=== PATIENT | female | born 1965 | race Caucasian/White ===

== ENCOUNTER 2016-11-16 15:26 | Inpatient (IN) | payer BC ==
[2016-11-16] MEDS ORDERED: SODIUM CHLORIDE 0.9% 1,000 ML IV STA (17:00)
[2016-11-16] MEDS ORDERED: FAMOTIDINE 20 MG/2 ML VIAL IV STA (17:01)
--- NOTE | 2016-11-16 17:08 | ED ---
GI Bleed HPI - General Chief complaint: GI Bleed Stated complaint: Vomiting Blood Time Seen by Provider: 11/16/16 16:49 Source: patient, RN notes reviewed Mode of arrival: ambulatory Limitations: no limitations - History of Present Illness Initial comments: This is a 51-year-old female history of a gastric bypass a number of years ago who presents with complaints of blood per rectum and vomiting blood. She states she was having some left hip pain she took one Aleve last night took another liter this morning took a third today also also took some Tylenol she started having nausea vomiting 3 today with bright red blood all 3 times she had normal bowel movement this morning but just prior to coming to the emergency departments treatment area she had a large black bowel movement. Per her she looks somewhat yellow she does admit to drinking one or 2 glasses of wine per day she denies smoking cigarettes he denies any other alcohol intake she denies any fevers chills sweats he does feel slightly weak no other complaints at this time. Of note she states she did have streaks of blood last time she use Aleve also. MD complaint: gross hematemesis, melena - Related Data Home Medications Medication Instructions Recorded Confirmed Acetaminophen Tab [Tylenol Tab] 650 mg PO Q4H 11/16/16 11/16/16 Cyanocobalamin [Vitamin B-12] 500 mcg PO DAILY 11/16/16 11/16/16 Ferrous Sulfate [Feosol] 325 mg PO DAILY 11/16/16 11/16/16 Multivitamins, Thera [Multivitamin] 1 tab PO DAILY 11/16/16 11/16/16 Naproxen Sodium [Aleve] 440 mg PO DAILY 11/16/16 11/16/16 Vitamin C/Biotin [Hair, Skin and 1 tab PO DAILY 11/16/16 11/16/16 Nails] Allergies Allergy/AdvReac Type Severity Reaction Status Date / Time Penicillins Allergy Unknown Verified 11/16/16 17:07 Review of Systems ROS Statement: Those systems with pertinent positive or pertinent negative responses have been documented in the HPI. ROS Other: All systems not noted in ROS Statement are negative. Past Medical History History of Any Multi-Drug Resistant Organisms: None Reported Past Surgical History: Bariatric Surgery Past Psychological History: No Psychological Hx Reported Smoking Status: Never smoker Past Alcohol Use History: Occasional Past Drug Use History: None Reported General Exam - General Exam Comments Initial Comments: This is a well-developed well-nourished awake alert oriented 3 female Limitations: no limitations General appearance: alert, anxious Head exam: Present: atraumatic, normocephalic, normal inspection Eye exam: Present: PERRL, EOMI, other (Pale conjunctiva) Pupils: Present: normal accommodation ENT exam: Present: normal exam, mucous membranes moist Neck exam: Present: normal inspection. Absent: tenderness, meningismus, lymphadenopathy Respiratory exam: Present: normal lung sounds bilaterally. Absent: respiratory distress, wheezes, rales, rhonchi, stridor Cardiovascular Exam: Present: normal rhythm, tachycardia GI/Abdominal exam: Present: soft, normal bowel sounds. Absent: distended, tenderness, guarding, rebound, rigid Rectal exam: Present: normal rectal tone, heme (+) stool, black stool Extremities exam: Present: normal inspection, full ROM, normal capillary refill. Absent: tenderness, pedal edema, joint swelling, calf tenderness Back exam: Present: normal inspection Neurological exam: Present: alert, oriented X3, CN II-XII intact Psychiatric exam: Present: normal affect, normal mood Skin exam: Present: warm, dry, intact, pallor Course Vital Signs 11/16/16 11/16/16 16:17 18:35 Temperature 98 F 99.0 F Pulse Rate 105 H 115 H Respiratory 20 17 Rate Blood Pressure 133/72 124/70 O2 Sat by Pulse 99 99 Oximetry - Reevaluation(s) Reevaluation #1: 11/16/16 19:13 I did reevaluate the patient symptoms at this time. Medical Decision Making - Medical Decision Making I did discuss the findings with the patient family and with the admitting physician. Patient be admitted for evaluation of GI bleed GI will be consulted at this time. - Lab Data Result diagrams: 11/16/16 17:00 11/16/16 17:00 Lab Results 11/16/16 11/16/16 11/16/16 Range/Units 17:00 17:00 17:00 WBC 12.8 H (3.8-10.6) k/uL RBC 3.57 L (3.80-5.40) m/uL Hgb 11.0 L (11.4-16.0) gm/dL Hct 34.3 (34.0-46.0) % MCV 96.1 (80.0-100.0) fL MCH 30.8 (25.0-35.0) pg MCHC 32.0 (31.0-37.0) g/dL RDW 13.3 (11.5-15.5) % Plt Count 215 (150-450) k/uL Neutrophils % 81 % Lymphocytes % 13 % Monocytes % 3 % Eosinophils % 1 % Basophils % 1 % Neutrophils # 10.4 H (1.3-7.7) k/uL Lymphocytes # 1.7 (1.0-4.8) k/uL Monocytes # 0.4 (0-1.0) k/uL Eosinophils # 0.2 (0-0.7) k/uL Basophils # 0.1 (0-0.2) k/uL PT (9.0-12.0) sec INR (<1.1) APTT (22.0-30.0) sec Sodium 140 (137-145) mmol/L Potassium 5.1 (3.5-5.1) mmol/L Chloride 104 (98-107) mmol/L Carbon Dioxide 23 (22-30) mmol/L Anion Gap 13 mmol/L BUN 49 H (7-17) mg/dL Creatinine 0.57 (0.52-1.04) mg/dL Est GFR (MDRD) Af Amer >60 (>60 ml/min/1.73 sqM) Est GFR (MDRD) Non-Af >60 (>60 ml/min/1.73 sqM) Glucose 225 H (74-99) mg/dL Calcium 8.3 L (8.4-10.2) mg/dL Magnesium 1.9 (1.6-2.3) mg/dL Total Bilirubin 0.4 (0.2-1.3) mg/dL AST 19 (14-36) U/L ALT 34 (9-52) U/L Alkaline Phosphatase 50 (38-126) U/L Total Creatine Kinase 70 (30-135) U/L CK-MB (CK-2) 0.6 (0.0-2.4) ng/mL CK-MB (CK-2) Rel Index 0.9 Troponin I <0.012 (0.000-0.034) ng/mL Total Protein 5.7 L (6.3-8.2) g/dL Albumin 3.4 L (3.5-5.0) g/dL Lipase 130 (23-300) U/L Stool Occult Blood (Negative) Blood Type Blood Type Recheck Antibody Screen Spec Expiration Date 11/16/16 11/16/16 11/16/16 Range/Units 17:00 17:00 17:00 WBC (3.8-10.6) k/uL RBC (3.80-5.40) m/uL Hgb (11.4-16.0) gm/dL Hct (34.0-46.0) % MCV (80.0-100.0) fL MCH (25.0-35.0) pg MCHC (31.0-37.0) g/dL RDW (11.5-15.5) % Plt Count (150-450) k/uL Neutrophils % % Lymphocytes % % Monocytes % % Eosinophils % % Basophils % % Neutrophils # (1.3-7.7) k/uL Lymphocytes # (1.0-4.8) k/uL Monocytes # (0-1.0) k/uL Eosinophils # (0-0.7) k/uL Basophils # (0-0.2) k/uL PT 11.3 (9.0-12.0) sec INR 1.1 (<1.1) APTT 18.6 L (22.0-30.0) sec Sodium (137-145) mmol/L Potassium (3.5-5.1) mmol/L Chloride (98-107) mmol/L Carbon Dioxide (22-30) mmol/L Anion Gap mmol/L BUN (7-17) mg/dL Creatinine (0.52-1.04) mg/dL Est GFR (MDRD) Af Amer (>60 ml/min/1.73 sqM) Est GFR (MDRD) Non-Af (>60 ml/min/1.73 sqM) Glucose (74-99) mg/dL Calcium (8.4-10.2) mg/dL Magnesium (1.6-2.3) mg/dL Total Bilirubin (0.2-1.3) mg/dL AST (14-36) U/L ALT (9-52) U/L Alkaline Phosphatase (38-126) U/L Total Creatine Kinase (30-135) U/L CK-MB (CK-2) (0.0-2.4) ng/mL CK-MB (CK-2) Rel Index Troponin I (0.000-0.034) ng/mL Total Protein (6.3-8.2) g/dL Albumin (3.5-5.0) g/dL Lipase (23-300) U/L Stool Occult Blood Positive H (Negative) Blood Type A Negative Blood Type Recheck CABO Indicated Antibody Screen NEGATIVE Spec Expiration Date 11/19/2016 - 2300 - Radiology Data Radiology results: report reviewed (X-rays are nonspecific no acute findings), image reviewed Disposition Clinical Impression: Melena, Gastrointestinal hemorrhage due to nonsteroidal antiinflammatory drug, Upper GI bleed Disposition: ADMITTED IP TO THIS [facility] Condition: Stable
[2016-11-16 17:28] LABS: Basophils # (A) 0.1 k/uL (0-0.2); Basophils % (A) 1 %; CH 32.2; CHCM 33.7; Eosinophils # (A) 0.2 k/uL (0-0.7); Eosinophils % (A) 1 %; HCT 34.3 % (34.0-46.0); HDW 2.52; Luc # (Auto) 0.11; Luc % (Auto) 1; Lymphocytes # (A) 1.7 k/uL (1.0-4.8); Lymphocytes % (A) 13 %; MCH 30.8 pg (25.0-35.0); MCV 96.1 fL (80.0-100.0); Mean Platelet Volume 8.5; Monocytes # (A) 0.4 k/uL (0-1.0); Monocytes % (A) 3 %; Neutrophils # (A) 10.4 k/uL (1.3-7.7); Neutrophils % (A) 81 %; RBC 3.57 m/uL (3.80-5.40); RDW 13.3 % (11.5-15.5); WBC 12.8 k/uL (3.8-10.6); WBC (Perox) 12.73
[2016-11-16 17:35] LABS: ALT 34 U/L (9-52); AST 19 U/L (14-36); Alkaline Phosphatase 50 U/L (38-126); Anion Gap 13 mmol/L; Blood Urea Nitrogen 49 mg/dL (7-17); Calcium 8.3 mg/dL (8.4-10.2); Carbon Dioxide 23 mmol/L (22-30); Chloride 104 mmol/L (98-107); Glucose 225 mg/dL (74-99); Magnesium 1.9 mg/dL (1.6-2.3); Non-African American GFR(MDRD) >60 (>60 ml/min/1.73 sqM); Potassium 5.1 mmol/L (3.5-5.1); Sodium 140 mmol/L (137-145); Total Bilirubin 0.4 mg/dL (0.2-1.3); Total Protein 5.7 g/dL (6.3-8.2)
[2016-11-16 17:43] LABS: INR 1.1 (<1.1); Prothrombin Time 11.3 sec (9.0-12.0)
[2016-11-16 17:53] LABS: Creatine Kinase 70 U/L (30-135)
[2016-11-16 17:56] LABS: Partial Thromboplastin Time 18.6 sec (22.0-30.0)
[2016-11-16 18:07] LABS: Creatine Kinase MB 0.6 ng/mL (0.0-2.4); Troponin I <0.012 ng/mL (0.000-0.034)
--- NOTE | 2016-11-16 18:12 | XR ---
Abdomen HISTORY: Pain, vomiting blood, rectal bleeding Frontal view of the abdomen submitted on 2 images. No comparisons Postop changes are noted, multiple surgical clips in the upper abdomen. There is no bowel obstruction or pneumoperitoneum evident. Lung bases are clear. IMPRESSION: Postoperative changes.
[2016-11-16] MEDS ORDERED: NALOXONE 0.4 MG/ML 1 ML VIAL IV PRN (19:14)
--- NOTE | 2016-11-16 19:18 | XR ---
EXAMINATION TYPE: XR chest 2V DATE OF EXAM: 11/16/2016 6:04 PM COMPARISON: None HISTORY: Pain, trauma, rectal bleeding TECHNIQUE: Frontal and lateral views of the chest are obtained. FINDINGS: There is no focal air space opacity, pleural effusion, or pneumothorax seen. The cardiac silhouette size is within normal limits. Surgical clips present in the upper abdomen. Probable calc ified granuloma left upper lobe. The osseous structures are intact. IMPRESSION: No acute cardiopulmonary process. Possible old granulomatous disease, comparison with ol d chest x-rays would be of benefit if available or alternatively consider short interval follow-up to assess for stability of left upper lobe lung nodule.
[2016-11-16 20:08] LABS: Basophils % (A) 0 %; CH 31.9; CHCM 33.9; Eosinophils # (A) 0.2 k/uL (0-0.7); Eosinophils % (A) 2 %; HCT 29.9 % (34.0-46.0); HDW 2.54; HGB 10.2 gm/dL (11.4-16.0); Luc # (Auto) 0.06; Luc % (Auto) 1; Lymphocytes # (A) 0.7 k/uL (1.0-4.8); Lymphocytes % (A) 6 %; MCH 32.2 pg (25.0-35.0); MCV 94.7 fL (80.0-100.0); Mean Platelet Volume 8.5; Monocytes # (A) 0.1 k/uL (0-1.0); Monocytes % (A) 1 %; Neutrophils # (A) 9.3 k/uL (1.3-7.7); Neutrophils % (A) 89 %; RBC 3.16 m/uL (3.80-5.40); RDW 13.2 % (11.5-15.5); WBC 10.4 k/uL (3.8-10.6); WBC (Perox) 11.57
[2016-11-16] MEDS: PANTOPRAZOLE 40 MG/10 ML VIAL IV SCH (23:07)
[2016-11-16] MEDS ORDERED: LORazepam 2 MG/ML SYRINGE IV PRN (23:41)
[2016-11-17 00:09] LABS: Glucose,Whole Blood 128 mg/dL (75-99)
[2016-11-17] MEDS: SODIUM CHLORIDE 0.9% 1,000 ML IV SCH ×4 (00:23→18:04)
[2016-11-17 00:48] LABS: CH 32.2; CHCM 34.4; HCT 28.4 % (34.0-46.0); HDW 2.57; HGB 9.4 gm/dL (11.4-16.0); MCH 31.1 pg (25.0-35.0); MCHC 33.1 g/dL (31.0-37.0); MCV 94.1 fL (80.0-100.0); Mean Platelet Volume 9.8; RBC 3.02 m/uL (3.80-5.40); RDW 13.4 % (11.5-15.5); WBC 7.1 k/uL (3.8-10.6)
[2016-11-17 03:25] LABS: Anion Gap 7 mmol/L; Blood Urea Nitrogen 40 mg/dL (7-17); Calcium 8.2 mg/dL (8.4-10.2); Carbon Dioxide 23 mmol/L (22-30); Chloride 109 mmol/L (98-107); Glucose 108 mg/dL (74-99); Non-African American GFR(MDRD) >60 (>60 ml/min/1.73 sqM); Sodium 139 mmol/L (137-145)
[2016-11-17 03:30] LABS: Appearance,Urine Clear (Clear); Bilirubin,Urine Negative (Negative); Glucose,Urine (UA) Negative (Negative); Ketones,Urine 1+ (Negative); Leukocyte Esterase,Urine Negative (Negative); Nitrite,Urine Negative (Negative); PH, Urine 5.5 (5.0-8.0); Protein,Urine Negative (Negative); Specific Gravity,Urine 1.023 (1.001-1.035); UA Billing (MACRO vs. MICRO) CHEM; Urobilinogen,Urine <2.0 mg/dL (<2.0)
[2016-11-17 05:58] LABS: Glucose,Whole Blood 105 mg/dL (75-99)
[2016-11-17 06:09] LABS: Basophils % (A) 0 %; CH 31.9; CHCM 33.8; Eosinophils # (A) 0.1 k/uL (0-0.7); Eosinophils % (A) 1 %; HCT 25.1 % (34.0-46.0); HDW 2.51; HGB 8.4 gm/dL (11.4-16.0); Luc # (Auto) 0.12; Luc % (Auto) 2; Lymphocytes # (A) 1.7 k/uL (1.0-4.8); Lymphocytes % (A) 24 %; MCH 31.6 pg (25.0-35.0); MCHC 33.3 g/dL (31.0-37.0); MCV 94.9 fL (80.0-100.0); Mean Platelet Volume 9.2; Monocytes # (A) 0.4 k/uL (0-1.0); Monocytes % (A) 6 %; Neutrophils # (A) 4.9 k/uL (1.3-7.7); Neutrophils % (A) 68 %; RBC 2.65 m/uL (3.80-5.40); RDW 13.5 % (11.5-15.5); WBC 7.2 k/uL (3.8-10.6); WBC (Perox) 7.17
[2016-11-17 06:22] LABS: Anion Gap 10 mmol/L; Blood Urea Nitrogen 37 mg/dL (7-17); Calcium 8.3 mg/dL (8.4-10.2); Carbon Dioxide 22 mmol/L (22-30); Chloride 111 mmol/L (98-107); Glucose 104 mg/dL (74-99); Magnesium 2.1 mg/dL (1.6-2.3); Non-African American GFR(MDRD) >60 (>60 ml/min/1.73 sqM); Phosphorous 3.3 mg/dL (2.5-4.5); Potassium 3.8 mmol/L (3.5-5.1); Sodium 143 mmol/L (137-145)
[2016-11-17] MEDS: INSULIN LISPRO (humaLOG) 300 UNIT/3 ML VIAL SQ SCH ×3 (06:37→18:08)
[2016-11-17] MEDS ORDERED: Potassium Replacement Protocol 1 EACH MISC MISCELLANE PRN (06:38)
[2016-11-17] MEDS: POTASSIUM CHLORIDE 10 MEQ, LIDOCAINE 2% INJ 10 MG in SODIUM CHLORIDE 0.9% 100 ML IV SCH ×2 (07:08→08:54)
[2016-11-17] MEDS ORDERED: INSULIN LISPRO (humaLOG) 300 UNIT/3 ML VIAL SQ SCH (07:30)
[2016-11-17 07:51] LABS: Glucose,Whole Blood 91 mg/dL (75-99)
--- NOTE | 2016-11-17 08:36 | HP ---
DATE OF ADMISSION: The chief complaint is GI bleed. HISTORY OF PRESENT ILLNESS: This is a 51-year-old woman with a past medical history of multiple medical problem with history of anemia. She had bariatric surgery, being followed by Dr. Mercer in the outpatient setting. Patient had multiple episodes of vomiting with blood and subsequently patient had bleeding per rectum. Initially it was black in color. Subsequently, it was burgundy in color. Patient came to [facility], admitted for further evaluation and hemoglobin is found to be 11 and 10.2. The patient and the patient is being transferred is being transferred to ICU at this time. There no history of any fever, rigors or chills. No history of headaches, loss of consciousness. PAST MEDICAL HISTORY: History of anemia, history of bariatric surgery with resection. Medications prior to admission: 1. Vitamin C 1 tablet p.o. daily. 2. Aleve 440 mg p.o. daily. 3. Iron sulfate 325 mg daily. 4. Tylenol 650 p.o. q.4 p.r.n. 5. Vitamin B12 five hundred mcg p.o. daily. 6. Multivitamin 1 p.o. daily Allergies are PENICILLIN. FAMILY HISTORY: History of Crohn's disease in the family. SOCIAL HISTORY: No history of heart disease or alcohol intake. REVIEW OF SYSTEMS: HEENT: No diminished vision or hearing. CARDIOVASCULAR: No angina, palpitations. RESPIRATORY: No cough, hemoptysis. GI: No nausea. : No dysuria. NERVOUS SYSTEM: No numbness or weakness. ALLERGY/IMMUNOLOGY: No asthma or hay fever. MUSCULOSKELETAL: As mentioned earlier. HEMATOLOGY/ONCOLOGY: As mentioned earlier. ENDOCRINE: No history of diabetes or hypothyroidism. CONSTITUTIONAL: As mentioned earlier. DERMATOLOGY: Negative. PSYCHIATRY: As mentioned earlier. PHYSICAL EXAM: Patient is alert and oriented x3. Pulse 103, blood pressure 125/82 and 133/84, respiration 17, temperature is 98.4, pulse ox 90% on room air. HEENT: Conjunctivae normal. Oral mucosa moist. NECK: No jugular venous distention. No carotid bruit. No lymph node enlargement. CARDIOVASCULAR SYSTEM: S1, S2, no S3, no S4. RESPIRATORY: Breath sounds diminished at the bases. A few scattered rhonchi, no crackles. ABDOMEN: Soft. Mild diffuse discomfort to palpation. No guarding. No mass palpable. EXTREMITIES: Legs no edema, no swelling. NERVOUS SYSTEM: Higher functions as mentioned, moves all 4 limbs, no focal deficits. LYMPHATICS: No lymph node enlargement to the neck or axillae. SKIN: No ulcer, rash or bleeding. Labs are WBC 4, hemoglobin 10.2. Other labs are noted. Glucose 225. ASSESSMENT: 1. Upper gastrointestinal bleeding with acute blood loss anemia. 2. Orthostatic tachycardia. 3. Increased WBC, possibly reactive. 4. Increased BUN. 5. Increased random blood sugar, possibly diabetes mellitus type 2. 6. Hypoalbuminemia, mild. 7. History of anemia. 8. History of adenoidectomy. 9. History of bariatric surgery. 10. History of section. 11. History of Calista-en-Y. 12. FULL CODE. RECOMMENDATION: In this is a 51-year-old woman who presented with multiple complex medical issues, will monitor the patient closely. I would recommend transfer the patient to ICU, 2 units of blood transfusion, monitor closely q.6 and proton inhibitors, n.p.o. until seen by Gastroenterology, upper endoscopy. Dr. Ramirez for ICU management monitor. DVT prophylaxis. Overall prognosis is guarded because of multiple complex medical issues. Further recommendations to follow. A copy is forwarded to Dr. Mercer who is the primary physician. Accu-Cheks a.c. and at bedtime also. Continue to monitor. MTDD
[2016-11-17] MEDS: PANTOPRAZOLE 40 MG/10 ML VIAL IV SCH ×2 (08:54→21:23)
--- NOTE | 2016-11-17 09:11 | P.CONS ---
History of Present Illness - Reason for Consult Consult date: 11/17/16 GI bleed Requesting physician: Erickson Crook - History of Present Illness 51-year-old female patient Dr. Mercer with a past medical history of Calista-en-Y gastric bypass 2010 in [place] with 100+ pound weight loss, chronic arthritic pain, and anemia. Patient has a history of chronic NSAID Tylenol usage for her arthritis preceding her Calista-en-Y gastric bypass. Yesterday she was experiencing difficulty sleeping around 3 AM and took Aleve secondary to joint pain. Joint pain did not improve and I am she took another Aleve. She took 2 tablets of Tylenol followed by another tablets of Aleve at 2 PM. Around 3 PM should increased nausea with 2 Brenna emesis followed by 2 large mixed red/black bloody bowel movement in the emergency room. Last night she had one additional bowel movement that was more red in nature. Mild discomfort in the midepigastric region but denies "pain". No history of GI bleed. Denies fever, chills. No usage of aspirin or other antiplatelet medications. Colonoscopy 2 years ago and her memory was within normal limits. Last EGD was prior to gastric bypass. Admission hemoglobin 9.4 MCV 94. Hemoglobin currently 8.4. Platelet 149. BUN 40. Creatinine 0.5. White count 7.2. INR 1.1. Abdominal x-ray no bowel obstruction postoperative changes. Chest x-ray no acute cardiopulmonary process. Review of Systems All systems: negative (See HPI) Past Medical History Additional Past Medical History / Comment(s): anemia History of Any Multi-Drug Resistant Organisms: None Reported Past Surgical History: Adenoidectomy, Bariatric Surgery, Section Additional Past Surgical History / Comment(s): 2010 calista -en-y; c sec x 2; ear tubesx2 at age 1 Past Anesthesia/Blood Transfusion Reactions: No Reported Reaction Past Psychological History: No Psychological Hx Reported Smoking Status: Never smoker Past Alcohol Use History: Occasional Past Drug Use History: None Reported - Past Family History Daughter(s) Family Medical History: No Reported History Mother Family Medical History: Hypertension Additional Family Medical History / Comment(s): crohns disease Medications and Allergies Home Medications Medication Instructions Recorded Confirmed Type Acetaminophen Tab [Tylenol Tab] 650 mg PO Q4H 11/16/16 11/16/16 History Cyanocobalamin [Vitamin B-12] 500 mcg PO DAILY 11/16/16 11/16/16 History Ferrous Sulfate [Feosol] 325 mg PO DAILY 11/16/16 11/16/16 History Multivitamins, Thera [Multivitamin] 1 tab PO DAILY 11/16/16 11/16/16 History Naproxen Sodium [Aleve] 440 mg PO DAILY 11/16/16 11/16/16 History Vitamin C/Biotin [Hair, Skin and 1 tab PO DAILY 11/16/16 11/16/16 History Nails] Allergies Allergy/AdvReac Type Severity Reaction Status Date / Time Penicillins Allergy Unknown Verified 11/16/16 17:07 Physical Exam Vitals: Vital Signs Temp Pulse Pulse Resp BP BP BP 11/17/16 07:00 73 13 138/74 11/17/16 06:30 79 17 119/63 11/17/16 06:00 96 16 119/63 11/17/16 05:30 81 16 128/68 11/17/16 05:00 97 16 128/68 11/17/16 04:30 88 14 132/73 11/17/16 04:00 98.0 F 85 16 132/73 11/17/16 03:30 90 16 118/69 11/17/16 03:00 93 13 118/69 11/17/16 02:30 88 16 126/86 11/17/16 02:00 100 15 126/86 11/17/16 01:30 85 17 126/81 11/17/16 01:00 90 15 126/81 11/17/16 00:30 98.2 F 93 13 140/92 11/17/16 00:08 90 11/16/16 22:25 98.3 F 103 H 17 125/82 119/79 11/16/16 21:10 98.0 F 11/16/16 20:49 104 H 17 141/80 11/16/16 19:48 103 H 17 124/70 BP Pulse Ox 11/17/16 07:00 97 11/17/16 06:30 97 11/17/16 06:00 98 11/17/16 05:30 96 11/17/16 05:00 95 11/17/16 04:30 97 11/17/16 04:00 97 11/17/16 03:30 96 11/17/16 03:00 97 11/17/16 02:30 98 11/17/16 02:00 94 L 11/17/16 01:30 98 11/17/16 01:00 97 11/17/16 00:30 98 11/17/16 00:08 11/16/16 22:25 136/84 98 11/16/16 21:10 11/16/16 20:49 97 11/16/16 19:48 97 Intake and Output 11/16/16 11/17/16 11/17/16 22:59 06:59 14:59 Intake Total 125 750 125 Output Total 400 0 Balance 125 350 125 Intake: IV 125 750 125 Sodium Chloride 0.9% 1, 125 750 125 000 ml @ 125 mls/hr IV . Q8H [facility] Rx#:[id number] Output: Urine 400 0 Stool 0 Other: Voiding Method Toilet Toilet # Voids 1 # Bowel Movements 1 0 Weight 69 kg 70.4 kg Patient Weight 11/18/16 06:59 Weight 70.4 kg General appearance: The patient is alert, oriented, in no acute distress. HET: Head is normocephalic and atraumatic. Pupils are equal and reactive. Oropharynx is clear without lesions. Neck: Supple without lymphadenopathy. Trachea midline. Heart: S1 S2. Regular rate and rhythm. Lungs: No crackles or wheezes are heard. Abdomen: Soft, midepigastric discomfort, nondistended with bowel sounds. No peritoneal signs. No palpable organomegaly or masses. Extremities: Normal skin color and turgor. No cyanosis, rash, ulceration, clubbing, or edema. Radial and pedal pulses are 2/4 bilaterally. Neurological: No focal deficits. Strength and sensation are grossly intact. Results CBC & Chem 7: 11/17/16 05:54 11/17/16 05:54 Labs: Abnormal Lab Results - Last 24 Hours (Table) 11/16/16 11/17/16 11/17/16 Range/Units 19:54 00:07 00:38 RBC 3.16 L 3.02 L (3.80-5.40) m/uL Hgb 10.2 L 9.4 L (11.4-16.0) gm/dL Hct 29.9 L 28.4 L (34.0-46.0) % Plt Count (150-450) k/uL Neutrophils # 9.3 H (1.3-7.7) k/uL Lymphocytes # 0.7 L (1.0-4.8) k/uL Chloride (98-107) mmol/L BUN (7-17) mg/dL Creatinine (0.52-1.04) mg/dL Glucose (74-99) mg/dL POC Glucose (mg/dL) 128 H (75-99) mg/dL Calcium (8.4-10.2) mg/dL Urine Ketones (Negative) 11/17/16 11/17/16 11/17/16 Range/Units 02:52 03:15 05:54 RBC 2.65 L (3.80-5.40) m/uL Hgb 8.4 L (11.4-16.0) gm/dL Hct 25.1 L (34.0-46.0) % Plt Count 149 L (150-450) k/uL Neutrophils # (1.3-7.7) k/uL Lymphocytes # (1.0-4.8) k/uL Chloride 109 H (98-107) mmol/L BUN 40 H (7-17) mg/dL Creatinine 0.50 L (0.52-1.04) mg/dL Glucose 108 H (74-99) mg/dL POC Glucose (mg/dL) (75-99) mg/dL Calcium 8.2 L (8.4-10.2) mg/dL Urine Ketones 1+ H (Negative) 11/17/16 11/17/16 Range/Units 05:54 05:56 RBC (3.80-5.40) m/uL Hgb (11.4-16.0) gm/dL Hct (34.0-46.0) % Plt Count (150-450) k/uL Neutrophils # (1.3-7.7) k/uL Lymphocytes # (1.0-4.8) k/uL Chloride 111 H (98-107) mmol/L BUN 37 H (7-17) mg/dL Creatinine (0.52-1.04) mg/dL Glucose 104 H (74-99) mg/dL POC Glucose (mg/dL) 105 H (75-99) mg/dL Calcium 8.3 L (8.4-10.2) mg/dL Urine Ketones (Negative) Assessment and Plan (1) Upper GI bleed Status: Acute (2) NSAID long-term use Status: Acute (3) History of Calista-en-Y gastric bypass Status: Acute (4) Acute blood loss anemia Status: Acute (5) Chronic anemia Status: Acute Plan: 1. IV Protonix 40 mg twice a day. No aspirin or NSAID products. 2. Nothing by mouth except medications. 3. Serial CBC. 4. EGD evaluation today. 5. Discontinuance of NSAIDs was discussed with patient. The sales representative [employer] supplies has discussed the risks, benefits and alternative therapies for the above-mentioned procedure and for both sedation/analgesia as well as necessary blood product administration, if indicated, as they pertain to this patient. The patient has indicated understanding and acceptance of the risks and procedures discussed. Thank you for this kind referral and the opportunity to participate in the care of your patient. This consultation was discussed with Dr. Dorsey. The impression and plan of care have been directed as dictated.
--- NOTE | 2016-11-17 10:53 | P.CNPUL ---
History of Present Illness Consult date: 11/17/16 Reason for consult: other Chief complaint: GI bleed History of present illness: Date 11/17/2016 This is a a 51-year-old female who was initially admitted to the emergency room on November 16. She was admitted to the fifth floor with a diagnosis of GI bleed. Apparently an 18 was called because of ongoing GI bleeding of the patient was transferred to the ICU. The patient is currently on room air. She has an IV appointment 9 at 125 an hour. The patient apparently is going to have an EGD today. She apparently signed the consent. Review of Systems A 12 point review of system is performed. Is positive for upper GI bleed. The rest of the 12 point review of system is unremarkable. Axid right now she's doing very well. Feeling well. No major complaint. No pain. No further vomiting or GI bleeding. Past Medical History Additional Past Medical History / Comment(s): anemia History of Any Multi-Drug Resistant Organisms: None Reported Past Surgical History: Adenoidectomy, Bariatric Surgery, Section Additional Past Surgical History / Comment(s): 2010 calista -en-y; c sec x 2; ear tubesx2 at age 1 Past Anesthesia/Blood Transfusion Reactions: No Reported Reaction Past Psychological History: No Psychological Hx Reported Smoking Status: Never smoker Past Alcohol Use History: Occasional Past Drug Use History: None Reported - Past Family History Daughter(s) Family Medical History: No Reported History Mother Family Medical History: Hypertension Additional Family Medical History / Comment(s): crohns disease Medications and Allergies Home Medications Medication Instructions Recorded Confirmed Type Acetaminophen Tab [Tylenol Tab] 650 mg PO Q4H 11/16/16 11/16/16 History Cyanocobalamin [Vitamin B-12] 500 mcg PO DAILY 11/16/16 11/16/16 History Ferrous Sulfate [Feosol] 325 mg PO DAILY 11/16/16 11/16/16 History Multivitamins, Thera [Multivitamin] 1 tab PO DAILY 11/16/16 11/16/16 History Naproxen Sodium [Aleve] 440 mg PO DAILY 11/16/16 11/16/16 History Vitamin C/Biotin [Hair, Skin and 1 tab PO DAILY 11/16/16 11/16/16 History Nails] Allergies Allergy/AdvReac Type Severity Reaction Status Date / Time Penicillins Allergy Unknown Verified 11/16/16 17:07 Physical Exam Osteopathic Statement: *. No significant issues noted on an osteopathic structural exam other than those noted in the History and Physical/Consult. Vitals: Vital Signs Temp Pulse Pulse Pulse Resp BP BP 11/17/16 09:30 96 29 H 141/70 11/17/16 09:00 84 23 165/83 11/17/16 08:30 71 15 141/78 11/17/16 08:00 98.1 F 83 96 17 141/78 11/17/16 07:30 84 19 138/74 11/17/16 07:00 73 13 138/74 11/17/16 06:30 79 17 119/63 11/17/16 06:00 96 16 119/63 11/17/16 05:30 81 16 128/68 11/17/16 05:00 97 16 128/68 11/17/16 04:30 88 14 132/73 11/17/16 04:00 98.0 F 85 16 132/73 11/17/16 03:30 90 16 118/69 11/17/16 03:00 93 13 118/69 11/17/16 02:30 88 16 126/86 11/17/16 02:00 100 15 126/86 11/17/16 01:30 85 17 126/81 11/17/16 01:00 90 15 126/81 11/17/16 00:30 98.2 F 93 13 140/92 11/17/16 00:08 90 11/16/16 22:25 98.3 F 103 H 17 125/82 11/16/16 21:10 98.0 F 11/16/16 20:49 104 H 17 141/80 11/16/16 19:48 103 H 17 124/70 BP BP Pulse Ox 11/17/16 09:30 96 11/17/16 09:00 11/17/16 08:30 96 11/17/16 08:00 96 11/17/16 07:30 95 11/17/16 07:00 97 11/17/16 06:30 97 11/17/16 06:00 98 11/17/16 05:30 96 11/17/16 05:00 95 11/17/16 04:30 97 11/17/16 04:00 97 11/17/16 03:30 96 11/17/16 03:00 97 11/17/16 02:30 98 11/17/16 02:00 94 L 11/17/16 01:30 98 11/17/16 01:00 97 11/17/16 00:30 98 11/17/16 00:08 11/16/16 22:25 119/79 136/84 98 11/16/16 21:10 11/16/16 20:49 97 11/16/16 19:48 97 Intake and Output 11/16/16 11/17/16 11/17/16 22:59 06:59 14:59 Intake Total 125 750 475 Output Total 400 400 Balance 125 350 75 Intake: IV 125 750 375 Sodium Chloride 0.9% 1, 125 750 375 000 ml @ 125 mls/hr IV . Q8H JOHNNIE Rx#:[id number] Intake, IV Titration 100 Amount Potassium Chloride 10 meq 100 Lidocaine 2% Inj 10 mg In Sodium Chloride 0.9% 100 ml @ 100 mls/hr IV Q1HR JOHNNIE Rx#:[id number] Output: Urine 400 400 Stool 0 Emesis 0 Other: Voiding Method Toilet Toilet # Voids 1 0 # Bowel Movements 1 0 1 # Emeses 0 Weight 69 kg 70.4 kg Patient Weight 11/18/16 06:59 Weight 70.4 kg No acute distress, oriented 3. HEENT examination is grossly unremarkable. Mixed membranes are moist. No oral lesions. Supple. Full range of motion. No adenopathy. Cardiovascular examination reveals regular rhythm rate. S1-S2 normal. No S3- S4 murmur. Lungs clear breath sounds equal. Abdomen soft bowel sounds are heard. Extremities are intact. Results - Laboratory Findings CBC and BMP: 11/17/16 05:54 11/17/16 05:54 PT/INR, D-dimer PT 11.3 sec (9.0-12.0) 11/16/16 17:00 INR 1.1 (<1.1) 11/16/16 17:00 Abnormal lab findings: Abnormal Labs 11/16/16 11/17/16 11/17/16 19:54 00:07 00:38 RBC 3.16 L 3.02 L Hgb 10.2 L 9.4 L Hct 29.9 L 28.4 L Plt Count Neutrophils # 9.3 H Lymphocytes # 0.7 L Chloride BUN Creatinine Glucose POC Glucose (mg/dL) 128 H Calcium Urine Ketones 11/17/16 11/17/16 11/17/16 02:52 03:15 05:54 RBC 2.65 L Hgb 8.4 L Hct 25.1 L Plt Count 149 L Neutrophils # Lymphocytes # Chloride 109 H BUN 40 H Creatinine 0.50 L Glucose 108 H POC Glucose (mg/dL) Calcium 8.2 L Urine Ketones 1+ H 11/17/16 11/17/16 05:54 05:56 RBC Hgb Hct Plt Count Neutrophils # Lymphocytes # Chloride 111 H BUN 37 H Creatinine Glucose 104 H POC Glucose (mg/dL) 105 H Calcium 8.3 L Urine Ketones Assessment and Plan (1) Acute blood loss anemia Status: Acute (2) Gastrointestinal hemorrhage due to nonsteroidal antiinflammatory drug Status: Acute (3) History of Calista-en-Y gastric bypass Status: Acute (4) Upper GI bleed Status: Acute Plan: Plan dated 11/17/2016 The patient apparently the patient seemed very stable. The patient might be able be transferred out of the unit later today. No discharge recommendations are made. We'll wait and see what the results of the EGD is. Currently she is not getting supplemental oxygen. Currently on room air. Her IVs appointment 9 IV at 1 25 mL an hour. Time with Patient: Greater than 30
[2016-11-17] MEDS ORDERED: MIDAZOLAM 2 MG/2 ML VIAL ONE (11:13)
[2016-11-17] MEDS ORDERED: LIDOCAINE 1% INJ 10MG/ML (20 ML MDV) ONE (11:13)
[2016-11-17] MEDS ORDERED: IV FLUID CONTINUATION 1,000 ML IV ONE (11:13)
[2016-11-17] MEDS ORDERED: PROPOFOL 10 MG/ML 20 ML VIAL IV ONE (11:13)
--- NOTE | 2016-11-17 11:46 | P.PCN ---
Date of Procedure: 11/17/16 Procedure(s) Performed: BRIEF HISTORY: Patient is a 51-year-old, pleasant, white female, admitted to the hospital with 3 episodes of hematemesis and multiple episodes of maroon- colored stools since yesterday afternoon. She has prior history of gastric bypass surgery with Calista-en-Y anastomosis in 2010 in [place]. Recently has been taking some Aleve but not on a regular basis. She is scheduled for an upper endoscopy to evaluate for upper GI source of bleeding. PROCEDURE PERFORMED: Esophagogastroduodenoscopy with cautery and resolution clip placement. PREOPERATIVE DIAGNOSIS: Acute GI bleed. IV sedation per anesthesia. PROCEDURE: After informed consent was obtained, the patient was brought into the endoscopy unit. IV conscious sedation was administered by Anesthesia under continuous monitoring. Initially the Olympus GIF-140 video endoscope was inserted into the mouth. Esophagus intubated without any difficulty. It was gradually advanced into the gastric pouch. The Calista-en-Y anastomosis was identified. There were 2 ulcerations noted on the anastomosis one was superficial measuring 1 cm and the second ulcer was large measuring about 3 cm and slightly deep and at the edge of the ulcer there was a clot that was adherent. In the middle of the ulcer there were 2 small brownish protuberance is seen. There was a list mild oozing noted at the site of the clot. I tried to dislodge the clot clot and thorough irrigation but was not possible. At this time I proceeded with a placement at the site of the clot with a visible vessel was identified with good hemostasis. Following this using the cautery the base of the ulcer with there were 2 small brownish protuberance is noted with cauterized. No further bleeding was identified. The gastric pouch appeared normal. The scope was advanced into both the afferent and the efferent loops which appeared normal. The scope was then withdrawn into the esophagus. The GE junction was located at 39 cm from the incisors. The esophagus appeared normal. There were no erosions or ulcerations seen and the patient tolerated the procedure well. IMPRESSION: 1. 2 ulcerations at the Calista-en-Y anastomosis measuring 1 cm and 3 cm in size. The larger ulcer had a visible vessel with a clot status post cautery and resolution clip placement as described above. 2. Normal Gastric pouch. RECOMMENDATIONS: The findings of this examination were discussed with the patient . She will be on a clear liquid diet today and she'll be continued on Protonix 40 mg every 12 hours..
[2016-11-17 12:14] LABS: Glucose,Whole Blood 98 mg/dL (75-99)
[2016-11-17 12:50] LABS: CH 31.7; CHCM 33.1; HCT 22.8 % (34.0-46.0); HDW 2.51; HGB 7.6 gm/dL (11.4-16.0); MCH 31.9 pg (25.0-35.0); MCHC 33.1 g/dL (31.0-37.0); MCV 96.2 fL (80.0-100.0); Mean Platelet Volume 7.9; RBC 2.37 m/uL (3.80-5.40); RDW 13.5 % (11.5-15.5); WBC 7.5 k/uL (3.8-10.6)
[2016-11-17 13:06] LABS: INR 1.1 (<1.1); Prothrombin Time 11.5 sec (9.0-12.0)
[2016-11-17 17:55] LABS: Glucose,Whole Blood 83 mg/dL (75-99)
[2016-11-17] MEDS: SUCRALFATE 1 GM TAB PO SCH ×2 (18:03→21:23)
[2016-11-17 20:45] LABS: Glucose,Whole Blood 91 mg/dL (75-99)
[2016-11-17 21:20] LABS: CH 31.6; CHCM 33.5; HCT 29.8 % (34.0-46.0); HDW 2.69; MCH 31.6 pg (25.0-35.0); MCHC 33.2 g/dL (31.0-37.0); MCV 95.1 fL (80.0-100.0); Mean Platelet Volume 7.9; RBC 3.13 m/uL (3.80-5.40); RDW 13.9 % (11.5-15.5); WBC 10.3 k/uL (3.8-10.6)
[2016-11-17] MEDS: ALPRAZolam 0.25 MG TAB PO PRN (21:25)
[2016-11-17 21:36] LABS: HGB 9.9 gm/dL (11.4-16.0)
[2016-11-17 22:33] LABS: Hemoglobin A1C 4.6 % (4.2-6.1)
--- NOTE | 2016-11-17 23:17 | PN ---
DATE OF SERVICE: 11/17/2016 This 51-year-old woman was admitted with upper GI bleed and acute blood loss anemia hemoglobin dropping to 7.4. Dr. Dorsey performed EGD which showed 2 ulcerated lesions at the Calista-en-Y anastomosis measuring 1 cm and 3 cm. The larger ulcer had a visible vessel with a clot, status post patient underwent cautery as well as clip placement. Normal gastric pouch was noted and the patient admitted for further evaluation. There is no history of any fever, chills. PAST MEDICAL HISTORY: Reviewed. REVIEW OF SYSTEMS: CARDIOVASCULAR: No angina, palpitations. RESPIRATORY: As mentioned earlier. GI: As mentioned earlier. : No dysuria. Current medications are reviewed, include: 1. Xanax 0.25 daily. 2. Humalog. 3. Narcan. 4. Protonix. 5. Carafate. PHYSICAL EXAM: Patient is alert and oriented x3. Pulse 73, blood pressure 130/70, respirations 16, temperature 98.4, pulse ox normal. HEENT: Conjunctivae normal. Oral mucosa moist. Neck is no jugular venous distension. No carotid bruits. No lymph node enlargement. CARDIOVASCULAR: S1 and S2 muffled. No S3. No S4. RESPIRATORY: Breath sounds diminished at the bases. A few scattered rhonchi. No crackles. Abdomen is soft, mild discomfort. There is no guarding. There is no mass palpable. LEGS: No edema. NERVOUS SYSTEM: Nonfocal. LABS: Hemoglobin 7.6. Otherwise, BMP noted, glucose 104. UA noted, 1+ ketones. ASSESSMENT: 1. Upper gastrointestinal bleeding with acute blood loss anemia secondary to 2 ulcerations at the Calista-en-Y anastomotic site measuring 1 cm and 3 cm. 2. Orthostatic tachycardia. 3. Increased WBC, possibly reactive. 4. Increased BUN. 5. Increased random blood sugar, possibly diabetes mellitus type 2. 6. Hypoalbuminemia, mild. 7. History of anemia. 8. History of adenoidectomy. 9. History of bariatric surgery. 10. History of section. 11. History of Calista-en-Y. 12. FULL CODE. RECOMMENDATIONS AND DISCUSSION: Recommend to continue current medications. Continue with monitoring and symptomatic treatment. Otherwise at this time, I would recommend 1 unit transfusion, proton pump inhibitors, add Carafate to the current regimen. Otherwise, continue to monitor. I would also recommend reduce the IV fluid rate and continue to monitor. The overall prognosis is extremely guarded because of multiple complex medical issues. Discussed at length with the family. Avoid NSAIDs and continue to monitor. Will monitor the patient in the ICU per Dr. Dorsey's recommendations and continue to monitor. Further recommendations to follow.
[2016-11-18] MEDS: INSULIN LISPRO (humaLOG) 300 UNIT/3 ML VIAL SQ SCH ×3 (00:57→12:46)
[2016-11-18 05:12] LABS: Glucose,Whole Blood 78 mg/dL (75-99)
[2016-11-18 05:17] LABS: Anion Gap 5 mmol/L; Blood Urea Nitrogen 10 mg/dL (7-17); Calcium 8.3 mg/dL (8.4-10.2); Carbon Dioxide 25 mmol/L (22-30); Chloride 108 mmol/L (98-107); Glucose 87 mg/dL (74-99); Magnesium 1.8 mg/dL (1.6-2.3); Non-African American GFR(MDRD) >60 (>60 ml/min/1.73 sqM); Phosphorous 2.8 mg/dL (2.5-4.5); Potassium 3.9 mmol/L (3.5-5.1); Sodium 138 mmol/L (137-145)
[2016-11-18] MEDS ORDERED: Magnesium Replacement Protocol 1 EACH MISC MISCELLANE PRN (05:36)
[2016-11-18 05:53] LABS: Basophils # (A) 0.1 k/uL (0-0.2); Basophils % (A) 1 %; CH 31.8; Eosinophils # (A) 0.2 k/uL (0-0.7); Eosinophils % (A) 3 %; HCT 27.1 % (34.0-46.0); HDW 2.76; HGB 8.9 gm/dL (11.4-16.0); Luc # (Auto) 0.07; Luc % (Auto) 1; Lymphocytes # (A) 2.3 k/uL (1.0-4.8); Lymphocytes % (A) 35 %; MCH 31.1 pg (25.0-35.0); Mean Platelet Volume 8.6; Monocytes # (A) 0.4 k/uL (0-1.0); Monocytes % (A) 6 %; Neutrophils # (A) 3.4 k/uL (1.3-7.7); Neutrophils % (A) 54 %; RBC 2.88 m/uL (3.80-5.40); RDW 14.1 % (11.5-15.5); WBC 6.4 k/uL (3.8-10.6)
[2016-11-18] MEDS ORDERED: POTASSIUM CHLORIDE ER 20 MEQ TAB.ER PO SCH (06:00)
[2016-11-18] MEDS: MAGNESIUM SULFATE-D5W PMX 1 GM in DEXTROSE/WATER 1 100ML.BAG IVPB SCH ×2 (06:24→08:50)
[2016-11-18] MEDS: SODIUM CHLORIDE 0.9% 1,000 ML IV SCH (06:25)
[2016-11-18] MEDS: SUCRALFATE 1 GM TAB PO SCH ×4 (08:51→21:26)
[2016-11-18] MEDS: PANTOPRAZOLE 40 MG/10 ML VIAL IV SCH ×2 (09:09→21:25)
[2016-11-18 10:09] VITALS: BMI 28.3
--- NOTE | 2016-11-18 11:07 | P.PN ---
Subjective Principal diagnosis: upper GI bleed History of Calista-en-Y. s/p EGD with findings of 2 marginal ulcers with visible vessel s/p injection and resolution clip placement. no receurrent GI bleeding. Feels well tolerating clear liquid diet. Afebrile. Denies abdominal pian. HGB 8.9. Objective - Vital Signs Vital signs: Vital Signs Temp 98.4 F 11/18/16 08:30 Pulse 71 11/18/16 10:00 Resp 11 L 11/18/16 10:00 BP 148/90 11/18/16 10:00 Pulse Ox 96 11/18/16 10:00 Intake & Output 11/17/16 11/18/16 11/18/16 18:59 06:59 18:59 Intake Total 2255 2020 280 Output Total 650 2850 0 Balance 1605 -830 280 Weight 70.4 kg 72.4 kg 72.4 kg Intake: IV 1745 720 180 Sodium Chloride 0.9% 1, 1245 720 180 000 ml @ 60 mls/hr IV . [id number] JOHNNIE Rx#:[id number] Intake, IV Titration 200 100 100 Amount Magnesium Sulfate-D5w Pmx 100 100 1 gm In Dextrose/Water 1 100ml.bag @ 100 mls/hr IVPB Q1H JOHNNIE Rx#: [id number] Potassium Chloride 10 meq 200 Lidocaine 2% Inj 10 mg In Sodium Chloride 0.9% 100 ml @ 100 mls/hr IV Q1HR JOHNNIE Rx#:[id number] Oral 1200 Blood Product 310 Rc As-1 Unit 310 [id number] Output: Urine 650 2850 0 Stool 0 0 0 Emesis 0 Other: Voiding Method Toilet Toilet # Voids 1 0 1 # Bowel Movements 0 0 0 # Emeses 0 - Constitutional General appearance: Present: average body habitus - EENT Eyes: Present: normal appearance ENT: Present: normal oropharynx - Neck Neck: Present: normal ROM - Respiratory Respiratory: bilateral: CTA - Cardiovascular Heart sounds: normal: S1, S2 - Gastrointestinal General gastrointestinal: Present: normal bowel sounds, soft - Integumentary Integumentary: Present: normal - Neurologic Neurologic: Present: CNII-XII intact - Musculoskeletal Musculoskeletal: Present: strength equal bilaterally - Psychiatric Psychiatric: Present: A&O x's 3, appropriate affect - Labs CBC & Chem 7: 11/18/16 04:30 11/18/16 04:25 Labs: Abnormal Lab Results - Last 24 Hours (Table) 11/17/16 11/17/16 11/18/16 Range/Units 12:04 21:02 04:25 RBC 2.37 L 3.13 L (3.80-5.40) m/uL Hgb 7.6 L 9.9 L D (11.4-16.0) gm/dL Hct 22.8 L 29.8 L (34.0-46.0) % Plt Count 140 L (150-450) k/uL Chloride 108 H (98-107) mmol/L Creatinine 0.50 L (0.52-1.04) mg/dL Calcium 8.3 L (8.4-10.2) mg/dL 11/18/16 Range/Units 04:30 RBC 2.88 L (3.80-5.40) m/uL Hgb 8.9 L (11.4-16.0) gm/dL Hct 27.1 L (34.0-46.0) % Plt Count (150-450) k/uL Chloride (98-107) mmol/L Creatinine (0.52-1.04) mg/dL Calcium (8.4-10.2) mg/dL Assessment and Plan (1) Upper GI bleed Narrative/Plan: Secondary to marginal ulcers s/p EGD with epinephrine injection and resolution clip placement Status: Acute (2) NSAID long-term use Status: Acute (3) History of Calista-en-Y gastric bypass Status: Acute (4) Acute blood loss anemia Status: Acute (5) Chronic anemia Status: Acute Plan: 1. IV Protonix 40 mg twice a day. No aspirin or NSAID products. 2. Full liquids. Ok to transfer out of ICU. 3. Oral iron supplementation. 4. Will follow with you.
--- NOTE | 2016-11-18 11:31 | P.PN ---
Subjective This a very pleasant 51-year-old female patient who is admitted on 11/16/2016 after having developed acute gastrointestinal bleeding. She had undergone EGD yesterday with cautery and clips placement after being found to have 2 ulcerations at a previous Calista-en-Y anastomosis measuring 1 cm 3 cm in size. The larger ulcer had a visible vessel with clot formation and this is where the cautery and clipping was placed. She has remained on Protonix 40 mg every 12 hours. She's been on a liquid diet as far. No further evidence of bleeding. She is seen again today in follow-up. She is awake and alert in no acute distress. She denies any significant abdominal discomfort. No shortness of breath cough or congestion. Objective - Vital Signs Vital signs: Vital Signs Temp 98.4 F 11/18/16 08:30 Pulse 71 11/18/16 10:00 Resp 11 L 11/18/16 10:00 BP 148/90 11/18/16 10:00 Pulse Ox 96 11/18/16 10:00 Intake & Output 11/17/16 11/18/16 11/18/16 18:59 06:59 18:59 Intake Total 2255 2020 340 Output Total 650 2850 0 Balance 1605 -830 340 Weight 70.4 kg 72.4 kg 72.4 kg Intake: IV 1745 720 240 Sodium Chloride 0.9% 1, 1245 720 240 000 ml @ 60 mls/hr IV . [id number] JOHNNIE Rx#:[id number] Intake, IV Titration 200 100 100 Amount Magnesium Sulfate-D5w Pmx 100 100 1 gm In Dextrose/Water 1 100ml.bag @ 100 mls/hr IVPB Q1H JOHNNIE Rx#: [id number] Potassium Chloride 10 meq 200 Lidocaine 2% Inj 10 mg In Sodium Chloride 0.9% 100 ml @ 100 mls/hr IV Q1HR JOHNNIE Rx#:[id number] Oral 1200 Blood Product 310 Rc As-1 Unit 310 [id number] Output: Urine 650 2850 0 Stool 0 0 0 Emesis 0 Other: Voiding Method Toilet Toilet # Voids 1 0 1 # Bowel Movements 0 0 0 # Emeses 0 - Exam GENERAL EXAM: Alert, comfortable in no apparent distress. HEAD: Normocephalic. EYES: Normal reaction of pupils, equal size. NOSE: Clear with pink turbinates. THROAT: No erythema or exudates. NECK: No masses, no JVD. CHEST: No chest wall deformity. LUNGS: Equal air entry with no crackles, wheeze, rhonchi or dullness. CVS: S1 and S2 normal with no audible mumurs, regular rhythm. ABDOMEN: No hepatosplenomegaly, normal bowel sounds, no guarding or rigidity. SPINE: No scoliosis or deformity SKIN: No rashes CENTRAL NERVOUS SYSTEM: No focal deficits, tone is normal in all 4 extremities. Extremities: There is no significant peripheral edema. No clubbing, no cyanosis. Peripheral pulses are intact. - Labs CBC & Chem 7: 11/18/16 04:30 11/18/16 04:25 Labs: Abnormal Lab Results - Last 24 Hours (Table) 11/17/16 11/17/16 11/18/16 Range/Units 12:04 21:02 04:25 RBC 2.37 L 3.13 L (3.80-5.40) m/uL Hgb 7.6 L 9.9 L D (11.4-16.0) gm/dL Hct 22.8 L 29.8 L (34.0-46.0) % Plt Count 140 L (150-450) k/uL Chloride 108 H (98-107) mmol/L Creatinine 0.50 L (0.52-1.04) mg/dL Calcium 8.3 L (8.4-10.2) mg/dL 11/18/16 Range/Units 04:30 RBC 2.88 L (3.80-5.40) m/uL Hgb 8.9 L (11.4-16.0) gm/dL Hct 27.1 L (34.0-46.0) % Plt Count (150-450) k/uL Chloride (98-107) mmol/L Creatinine (0.52-1.04) mg/dL Calcium (8.4-10.2) mg/dL Assessment and Plan Plan: Impression: #1 Acute gastrointestinal bleeding secondary to 2 ulcers noted at the previous Calista-en-Y anastomosis site. Status post EGD with cautery and clipping of the larger ulcer. Postoperative day #1. Current hemoglobin 8.9. #2 History of Calista-en-Y bypass surgery. Plan: The patient was seen and evaluated by Dr. Ramirez. She is stable from the critical care standpoint and could be transferred out of the intensive care unit later today. GI services has advanced her diet to full. We'll continue to follow make further recommendations based on her clinical status.
[2016-11-18] MEDS: FERROUS SULFATE 325 MG TAB PO SCH (13:31)
--- NOTE | 2016-11-18 20:32 | PN ---
DATE OF SERVICE: 11/18/2016 This 51-year-old woman with a past medical history of multiple medical problems admitted with gastrointestinal bleed, hemoglobin has been dropping to 7.6, after transfusion 9.8. Today is 8.9. No active further bleeding was noted. junction was visualized and was cauterized at this time. The patient being closely monitored. The patient able to tolerate a diet at this time. PAST MEDICAL HISTORY: Reviewed. REVIEW OF SYSTEMS: CARDIOVASCULAR: As mentioned earlier. RESPIRATORY: As mentioned earlier. GASTROINTESTINAL: As mentioned earlier. : No dysuria. Nervous system: No numbness, weakness. Current medications are reviewed and include: 1. Xanax 0.25 t.i.d. 2. Iron sulfate. 3. Narcan. 4. Protonix. 5. Carafate. PHYSICAL EXAMINATION: The patient is alert and oriented x3. Pulse 75, blood pressure 119/76, respiratory rate 16, temperature 98.4, pulse ox normal. HEENT: Conjunctivae normal. Oral mucosa is moist. NECK: No jugular venous distention. No carotid bruit. No lymph node enlargement. CARDIOVASCULAR: S1, S2 muffled. No S3, no S4. RESPIRATORY: Breath sounds diminished at the bases. A few scattered rhonchi and crackles. ABDOMEN: Soft, obese, nontender. No mass palpable. LEGS: No edema. No swelling. CENTRAL NERVOUS SYSTEM: Higher functions as mentioned earlier. Moves all four limbs. No focal deficits. LYMPHATICS: No lymph nodes palpable in the neck, axillae or groin. SKIN: No ulcer, rash or bleeding. LABS: WBC 6.8, hemoglobin 8.2, sodium is 130, potassium 3.9. ASSESSMENT: 1. Upper gastrointestinal bleeding with acute blood loss anemia secondary to two ulcerations in the Calista-En-Y anastomotic site measuring 1 cm to 3 cm, status post cauterization of the visible vessel with a clot and resolution clip placement. 2. Normal gastric pouch. 3. Orthostatic tachycardia, present on admission. 4. Increased WBC, possibly reactive. 5. Increased BUN. 6. Increased random blood sugar, diabetes mellitus type 2 unlikely. 7. Hypoalbuminemia mild. 8. History of anemia. 9. History of adenoidectomy. 10. History of bariatric surgery. 11. History of section. 12. History of Calista-en-Y. 13. FULL CODE. RECOMMENDATIONS AND DISCUSSION: In this 51-year-old woman who presented with multiple complex medical issues, we will monitor the patient closely. Continue the current medications. Continue symptomatic treatment. Otherwise, at this time, I would recommend to continue the current medications. Hemoglobin A1C is only 4.6. Otherwise, continue to monitor. Repeat labs in the morning. Advance the diet. Proton pump inhibitors and Carafate. Guarded prognosis because of multiple complex medical issues. Further recommendations to follow. MTDD
[2016-11-18] MEDS: ALPRAZolam 0.25 MG TAB PO PRN (21:25)
[2016-11-18] MEDS ORDERED: TEMAZEPAM 7.5 MG CAP PO PRN (22:51)
[2016-11-19] MEDS: SODIUM CHLORIDE 0.9% 1,000 ML IV SCH ×2 (00:01→12:54)
[2016-11-19 05:26] LABS: Basophils % (A) 1 %; CH 31.9; CHCM 34.2; Eosinophils # (A) 0.2 k/uL (0-0.7); Eosinophils % (A) 4 %; HCT 27.9 % (34.0-46.0); HDW 2.71; HGB 9.3 gm/dL (11.4-16.0); Luc # (Auto) 0.12; Luc % (Auto) 2; Lymphocytes # (A) 1.9 k/uL (1.0-4.8); Lymphocytes % (A) 34 %; MCH 31.5 pg (25.0-35.0); MCHC 33.6 g/dL (31.0-37.0); MCV 93.9 fL (80.0-100.0); Mean Platelet Volume 8.1; Monocytes # (A) 0.3 k/uL (0-1.0); Monocytes % (A) 5 %; Neutrophils # (A) 2.9 k/uL (1.3-7.7); Neutrophils % (A) 54 %; RBC 2.97 m/uL (3.80-5.40); RDW 13.9 % (11.5-15.5); WBC 5.5 k/uL (3.8-10.6); WBC (Perox) 5.61
[2016-11-19 05:42] LABS: Anion Gap 9 mmol/L; Blood Urea Nitrogen 11 mg/dL (7-17); Calcium 8.7 mg/dL (8.4-10.2); Carbon Dioxide 26 mmol/L (22-30); Chloride 105 mmol/L (98-107); Glucose 88 mg/dL (74-99); Non-African American GFR(MDRD) >60 (>60 ml/min/1.73 sqM); Phosphorous 3.5 mg/dL (2.5-4.5); Potassium 3.9 mmol/L (3.5-5.1); Sodium 140 mmol/L (137-145)
[2016-11-19 07:49] VITALS: BP 137/87; PULSE 79; RESP 16; TEMP 97.3
[2016-11-19] MEDS: PANTOPRAZOLE 40 MG/10 ML VIAL IV SCH (08:11)
[2016-11-19] MEDS: SUCRALFATE 1 GM TAB PO SCH ×2 (08:11→12:51)
--- NOTE | 2016-11-19 11:48 | P.PN ---
Subjective Principal diagnosis: upper GI bleed History of Calista-en-Y. s/p EGD with findings of 2 marginal ulcers with visible vessel s/p injection and resolution clip placement. no receurrent GI bleeding. Feels well tolerating soft diet with protein shakes. Afebrile. Denies abdominal pian. HGB 9.3. Objective - Vital Signs Vital signs: Vital Signs Temp 97.3 F L 11/19/16 07:48 Pulse 79 11/19/16 07:48 Resp 16 11/19/16 07:48 BP 137/87 11/19/16 07:48 Pulse Ox 100 11/19/16 07:48 Intake & Output 11/18/16 11/19/16 11/19/16 18:59 06:59 18:59 Intake Total 460 1680 540 Output Total 0 Balance 460 1680 540 Weight 72.4 kg Intake: IV 360 960 Sodium Chloride 0.9% 1, 360 960 000 ml @ 60 mls/hr IV . [id number] JOHNNIE Rx#:[id number] Intake, IV Titration 100 Amount Magnesium Sulfate-D5w Pmx 100 1 gm In Dextrose/Water 1 100ml.bag @ 100 mls/hr IVPB Q1H JOHNNIE Rx#: [id number] Oral 720 540 Output: Urine 0 Other: Voiding Method Toilet Toilet # Voids 1 3 # Bowel Movements 0 - Exam General appearance: The patient is alert, oriented, in no acute distress. HET: Head is normocephalic and atraumatic. Pupils are equal and reactive. Oropharynx is clear without lesions. Neck: Supple without lymphadenopathy. Trachea midline. Heart: S1 S2. Regular rate and rhythm. Lungs: No crackles or wheezes are heard. Abdomen: Soft, nontender, nondistended with bowel sounds. No peritoneal signs. No palpable organomegaly or masses. Extremities: Normal skin color and turgor. No cyanosis, rash, ulceration, clubbing, or edema. Radial and pedal pulses are 2/4 bilaterally. Neurological: No focal deficits. Strength and sensation are grossly intact. - Labs CBC & Chem 7: 11/19/16 04:58 11/19/16 04:58 Labs: Abnormal Lab Results - Last 24 Hours (Table) 11/19/16 11/19/16 Range/Units 04:58 04:58 RBC 2.97 L (3.80-5.40) m/uL Hgb 9.3 L (11.4-16.0) gm/dL Hct 27.9 L (34.0-46.0) % Creatinine 0.50 L (0.52-1.04) mg/dL Assessment and Plan (1) Upper GI bleed Narrative/Plan: Secondary to marginal ulcers s/p EGD with epinephrine injection and resolution clip placement Status: Acute (2) NSAID long-term use Status: Acute (3) History of Calista-en-Y gastric bypass Status: Acute (4) Acute blood loss anemia Status: Acute (5) Chronic anemia Status: Acute Plan: 1. Agreeable for discharge. 2. Return to office in 1-2 weeks. 3. No NSAIDs or aspirin. 4. Protonix 40 mg daily. 5. Soft diet with protein shakes 2-3 times daily. Multivitamin with iron daily. Assessment and plan of care discussed with Dr. Dorsey.
[2016-11-19] MEDS ORDERED: POTASSIUM CHLORIDE ER 20 MEQ TAB.ER PO STA (12:32)
[2016-11-19] MEDS: FERROUS SULFATE 325 MG TAB PO SCH (12:51)
--- NOTE | 2016-11-20 09:47 | DS ---
DATE OF ADMISSION: 11/16/2016 DATE OF DISCHARGE: 11/19/2016 FINAL DIAGNOSES: 1. Upper gastrointestinal bleeding with acute blood loss anemia secondary to two ulcerations in the Calista-En-Y anastomotic site 1 to 3 cm status post cauterization of the visible vessel and clip placement. 2. Normal gastric pouch. 3. Orthostatic, present on admission. 4. Increased WBC, possibly reactive. 5. Increased BUN. 6. Increased random blood sugar, diabetes mellitus Type 2 unlikely. 7. Hypoalbuminemia, mild. 8. History of anemia. 9. History of adenoidectomy. 10. History of bariatric surgery. 11. History of section. 12. History of Calista-En-Y. 13. FULL CODE. DISCHARGE DISPOSITION: The patient will be discharged in stable condition with guarded prognosis. HISTORY OF PRESENT ILLNESS: 51 -year-old woman with past medical history of multiple medical problems admitted with upper gastrointestinal bleeding. The patient had acute blood loss anemia, hemoglobin 7.4, one unit of transfusion was done. The patient had an upper gastrointestinal endoscopy by Dr. Dorsey which showed and cauterization and clip placement was done as mentioned earlier. Please refer to Dr. Dorsey's dictation for further details. Patient improved significantly. Hemoglobin is currently at 9.3. The patient will be discharged in stable condition with guarded prognosis. DISCHARGE ADVICE AND MEDICATIONS: 1. Diet is cardiac. 2. Activity limited until follow-up. 3. Follow up with Dr. Dorsey as recommend. 4. Follow-up with Dr. Mercer in 2 to 3 days. 5. CBC BMP in the outpatient setting. 6. No NSAIDs or aspirin for now. 7. Diet is soft, low residue, bland, no coffee, no tea, pop, milk at this time. 8. Medications, Tylenol 650 q.4 p.r.n. 9. Vitamin B12 500 mcg p.o. daily. 10. Hold iron for now. 11. Multivitamin 1 p.o. daily. 12. Omeprazole 40 mg p.o. daily. 13. Carafate 1 gram before meals and at bedtime. 14. Vitamin C biotin as before. MTDD
== END 2016-11-19 15:14 | disposition home or self-care (01) | DRG 378 ==
LOC: EC 15:26 → 5MS5E 19:14 → 6ICU 23:39 → 4MS4W 11-19 07:29
PROVIDERS: ADMIT Internal Medicine; ATTEND Internal Medicine
PROC: 30233N1 Transfusion of Nonautologous Red Blood Cells into Peripheral Vein, Percutaneous Approach (ICD-10-PCS; 2016-11-16)
PROC: 0W3P8ZZ Control Bleeding in Gastrointestinal Tract, Via Natural or Artificial Opening Endoscopic (ICD-10-PCS; principal; 2016-11-17 09:00)
DX: K28.4 Chronic or unspecified gastrojejunal ulcer with hemorrhage (principal); D62 Acute posthemorrhagic anemia; E88.09 Other disorders of plasma-protein metabolism, not elsewhere classified; R00.0 Tachycardia, unspecified; T39.395A Adverse effect of other nonsteroidal anti-inflammatory drugs [NSAID], initial encounter; M19.90 Unspecified osteoarthritis, unspecified site; Z98.84 Bariatric surgery status; Z82.49 Family history of ischemic heart disease and other diseases of the circulatory system; Z88.0 Allergy status to penicillin; Z79.1 Long term (current) use of non-steroidal anti-inflammatories (NSAID); Z79.899 Other long term (current) drug therapy
CPT/HCPCS: 36415; 43255; 71020; 74000; 80048; 80053; 81003; 82272; 82550; 82553; 83036; 83690; 83735; 84100; 84484; 85025; 85027; 85610; 85730; 86850; 86900; 86901; 86920; 96361; 96374; 99153; 99285

== ENCOUNTER 2021-04-08 09:46 | Day surgery (SDC) | payer BC ==
[2021-04-03 16:00] VITALS: BMI 29.2
[~2021-04-08 09:46] MED LIST: LACTATED RINGERS 1,000 ML IV SCH; LIDOCAINE 1% (10MG/ML) FOR IV START INTRADERMA PRN
[2021-04-08 10:32] VITALS: TEMP 98.2
[2021-04-08] MEDS ORDERED: PROPOFOL 10 MG/ML 20 ML VIAL IV ONE (10:59)
--- NOTE | 2021-04-08 11:10 | P.PCN ---
Date of Procedure: 04/08/21 Procedure(s) Performed: BRIEF HISTORY: Patient is a 55-year-old, pleasant, white female scheduled for an upper endoscopy as a part of screening for esophageal varices. She was diagnosed with alcoholic cirrhosis of the liver 6 months ago. PROCEDURE PERFORMED: Esophagogastroduodenoscopy. PREOPERATIVE DIAGNOSIS: Screening for esophageal varices/cirrhosis of the. IV sedation per anesthesia. PROCEDURE: After informed consent was obtained, the patient was brought into the endoscopy unit. IV sedation was administered by Anesthesia under continuous monitoring. Initially the Olympus GIF-140 video endoscope was inserted into the mouth. Esophagus intubated without any difficulty. It was gradually advanced into the stomach. Gastric pouch appeared normal. There was evidence of gastric bypass surgery with Calista-en-Y anastomosis and appeared normal. The afferent and efferent loop appeared normal.. The scope was then withdrawn into the esophagus. Small hiatal hernia noted. The GE junction was located at 39 cm from the incisors. The esophagus appeared normal. There were no erosions or ulcerations seen, no esophageal varices and the patient tolerated the procedure well. IMPRESSION: 1. Evidence of gastric bypass surgery with normal Calista-en-Y anastomosis. 2. No evidence of esophageal. RECOMMENDATIONS: The findings of this examination were discussed with the patient family. She was advised to have a repeat screening upper endoscopy in 2-3 years.
[2021-04-08 11:32] VITALS: BP 118/78; PULSE 64; RESP 20
== END 2021-04-08 12:07 | disposition home or self-care (01) ==
LOC: ORWHC2ENDO 09:46
PROVIDERS: ATTEND Internal Medicine Gastroenterology
DX: K70.30 Alcoholic cirrhosis of liver without ascites (principal); Z98.84 Bariatric surgery status; I10 Essential (primary) hypertension; F10.11 Alcohol abuse, in remission; Z88.0 Allergy status to penicillin; D64.9 Anemia, unspecified; Z79.899 Other long term (current) drug therapy; Z98.891 History of uterine scar from previous surgery; Z98.890 Other specified postprocedural states; K21.9 Gastro-esophageal reflux disease without esophagitis; Z87.19 Personal history of other diseases of the digestive system
CPT/HCPCS: 43235; J2704

== ENCOUNTER → 2021-05-04 | Outpatient (CLI) | payer BC ==
--- NOTE | 2021-05-04 11:11 | US ---
EXAMINATION TYPE: US liver DATE OF EXAM: 05/04/2021 COMPARISON: NONE CLINICAL HISTORY: K70.9 alcoholic liver disease. EXAM MEASUREMENTS: Liver Length: 18.4 cm Gallbladder Wall: 0.2 cm CBD: 0.3 cm Right Kidney: 10.8 x 3.4 x 5.4 cm Pancreas: wnl Liver: slightly heterogenous Gallbladder: stones Evidence for sonographic East's sign: no CBD: wnl Right Kidney: No hydronephrosis or masses seen, not well seen in lateral view IMPRESSION: Cholelithiasis.
== END | disposition home or self-care (01) ==
LOC: RADUSWWP 08:30
PROVIDERS: ATTEND Internal Medicine Gastroenterology
DX: K80.20 Calculus of gallbladder without cholecystitis without obstruction (principal)
CPT/HCPCS: 76705

== ENCOUNTER → 2022-01-21 | Outpatient (CLI) | payer BC ==
--- NOTE | 2022-01-25 10:42 | MM ---
Reason for exam: screening (asymptomatic). Last mammogram was performed 1 year ago. History: Patient is postmenopausal. Physical Findings: A clinical breast exam by your physician is recommended on an annual basis and results should be correlated with mammographic findings. MG Screening Mammo w CAD Bilateral CC and MLO view(s) were taken. Prior study comparison: January 06, 2021, mammogram, performed at [facility]. May 21, 2019, mammogram, performed at [facility]. There are scattered fibroglandular densities. Asymmetry in the left area unchanged. No significant changes when compared with prior studies. ASSESSMENT: Benign, BI-RAD 2 RECOMMENDATION: Routine screening mammogram of both breasts in 1 year. Patient should continue monthly self breast exams. A negative report should not preclude additional follow up of suspicious palpable abnormalities.
== END | disposition home or self-care (01) ==
LOC: RADMAMWWP 09:48
PROVIDERS: ATTEND Internal Medicine
DX: Z12.31 Encounter for screening mammogram for malignant neoplasm of breast (principal); Z78.0 Asymptomatic menopausal state
CPT/HCPCS: 77067

== ENCOUNTER → 2023-01-28 | Outpatient (CLI) | payer BC ==
--- NOTE | 2023-01-31 18:59 | MM ---
Reason for Exam: Screening (asymptomatic). Last screening mammogram was performed 12 month(s) ago. Patient History: Menarche at age 11. First Full-Term at age 28. Late child-bearing (after 30). Postmenopausal. Risk Values: Danielle 5 year model risk: 1.9%. NCI Lifetime model risk: 10.2%. Prior Study Comparison: 05/21/2019 Screening Mammogram, [facility]. 01/06/2021 Screening Mammogram, [facility]. 01/21/2022 Bilateral Screening Mammogram, [facility]. Tissue Density: The breast tissue is heterogeneously dense. This may lower the sensitivity of mammography. Findings: Analyzed By CAD. Overall breast size has decreased in breast density has increased from prior exams. There is chronic nodularity far posterior central right breast. Unchanged asymmetric density central superior left MLO view at a middle depth. There is no suspicious group of microcalcifications or new suspicious mass in either breast. Overall Assessment: Benign, BI-RAD 2 Management: Screening Mammogram of both breasts in 1 year. 1. Patient should continue monthly self breast exams. 2. A clinical breast exam by your physician is recommended on an annual basis. 3. This exam should not preclude additional follow-up of suspicious palpable abnormalities. Electronically signed and approved by: Manjinder Cantu M.D. Radiologist
== END | disposition home or self-care (01) ==
LOC: RADMAMWWP 16:40
PROVIDERS: ATTEND Internal Medicine
DX: Z12.31 Encounter for screening mammogram for malignant neoplasm of breast (principal); Z78.0 Asymptomatic menopausal state
CPT/HCPCS: 77067

== ENCOUNTER 2023-11-02 12:10 | Day surgery (SDC) | payer BC ==
[2023-11-01 13:15] VITALS: BMI 23.0
[~2023-11-02 12:10] MED LIST changes: -LIDOCAINE 1% (10MG/ML) FOR IV START INTRADERMA PRN
[2023-11-02 13:16] VITALS: RESP 16; TEMP 97.1
[2023-11-02] MEDS ORDERED: LIDOCAINE 1% INJ 10MG/ML (20 ML MDV) ONE (13:42)
[2023-11-02] MEDS ORDERED: PROPOFOL 10 MG/ML 20 ML VIAL IV ONE (13:42)
--- NOTE | 2023-11-02 14:03 | P.PCN ---
Date of Procedure: 11/02/23 Procedure(s) Performed: BRIEF HISTORY: Patient is a 58-year-old pleasant female scheduled for an elective colonoscopy as a part of gaining for colon cancer. PROCEDURE PERFORMED: Colonoscopy. PREOPERATIVE DIAGNOSIS: Screening for colon cancer. IV sedation per Anesthesia. PROCEDURE: After informed consent was obtained, the patient, was brought into the endoscopy unit. IV sedation was administered by Anesthesia under continuous monitoring. Digital rectal examination was normal. Initially the Olympus CF-160 flexible video colonoscope was then inserted in the rectum, gradually advanced into the cecum without any difficulty. Careful examination was performed as the scope was gradually being withdrawn. Ileocecal valve and the appendiceal orifice were visualized and appeared normal. Prep was fair.. Mucosa of the cecum, ascending colon, transverse colon, descending colon, sigmoid colon, and rectum appeared normal. Retroflexion was performed in the rectum and no lesions were seen. The patient tolerated the procedure well. IMPRESSION: Normal-appearing colon from rectum to cecum with no evidence of colorectal neoplasia. RECOMMENDATIONS: Findings of this examination were discussed with the patient as well as a family. She was advised to have a repeat screening colonoscopy in 10 years..
[2023-11-02 14:33] VITALS: BP 105/73; PULSE 57
== END 2023-11-02 14:36 | disposition home or self-care (01) ==
LOC: ORWHC2ENDO 12:10
PROVIDERS: ATTEND Internal Medicine Gastroenterology
DX: Z12.11 Encounter for screening for malignant neoplasm of colon (principal); I10 Essential (primary) hypertension; E78.5 Hyperlipidemia, unspecified; Z88.0 Allergy status to penicillin; Z79.899 Other long term (current) drug therapy
CPT/HCPCS: 45378

== ENCOUNTER → 2024-02-07 | Outpatient (CLI) | payer BC ==
--- NOTE | 2024-02-09 22:39 | MM ---
Reason for Exam: Screening (asymptomatic). Last screening mammogram was performed 12 month(s) ago. Patient History: Menarche at age 11. First Full-Term at age 28. Late child-bearing (after 30). Postmenopausal. Risk Values: Danielle 5 year model risk: 2.0%. NCI Lifetime model risk: 10.0%. Prior Study Comparison: 01/06/2021 Screening Mammogram, [facility]. 01/21/2022 Bilateral Screening Mammogram, [facility]. 01/28/2023 Bilateral MG screening mammo w CAD, [facility]. Tissue Density: The breasts are heterogeneously dense, which may obscure small masses. Findings: Analyzed By CAD. Pattern is stable. There is slightly greater parenchymal tissue on the left compared to the right. Chronic nodular areas in the posterior right medial lateral view, appears stable. No suspicious groups of microcalcifications, spiculated or lobular masses, architectural distortion or other secondary signs of malignancy are mammographically apparent. Overall Assessment: Benign, BI-RAD 2 Management: Screening Mammogram of both breasts in 1 year. A negative mammogram report should not preclude additional follow up of suspicious palpable abnormalities. Patient should continue monthly self breast exam. A clinical breast exam by your physician is recommended on an annual basis and results should be correlated with mammographic findings. Electronically signed and approved by: Dk Diaz D.O. Radiologis
== END | disposition home or self-care (01) ==
LOC: RADMAMWWP 10:11
PROVIDERS: ATTEND Internal Medicine
DX: Z12.31 Encounter for screening mammogram for malignant neoplasm of breast (principal); Z78.0 Asymptomatic menopausal state
CPT/HCPCS: 77067

== ENCOUNTER → 2025-03-01 | Outpatient (CLI) | payer BC ==
--- NOTE | 2025-03-04 08:02 | MM ---
Reason for Exam: Screening (asymptomatic). Last mammogram was performed 1 year(s) and 1 month(s) ago. Patient History: Menarche at age 11. First Full-Term at age 28. Late child-bearing (after 30). Postmenopausal. Risk Values: Danielle 5 year model risk: 2.0%. NCI Lifetime model risk: 9.7%. Prior Study Comparison: 01/21/2022 Bilateral Screening Mammogram, [facility]. 01/28/2023 Bilateral MG screening mammo w CAD, [facility]. 02/07/2024 Bilateral MG screening mammo w CAD, [facility]. Tissue Density: There are scattered areas of fibroglandular density. Findings: Analyzed By CAD. There is no suspicious group of microcalcifications or new suspicious mass in either breast. Overall Assessment: Negative, BI-RAD 1 Management: Screening Mammogram of both breasts in 1 year. . Patient should continue monthly self-breast exams. A clinical breast exam by your physician is recommended on an annual basis. This exam should not preclude additional follow-up of suspicious palpable abnormalities. Note on Danielle scores and lifetime risk: 1. A Danielle score greater than 3% is considered moderate risk. If this is the case, consider specialist referral to assess eligibility for a risk reducing agent. 2. If overall lifetime risk for the development of breast cancer is 20% or higher, the patient may qualify for future screening with alternating mammogram and breast MRI. [facility], , 03/04/2025 7:59 AM. Electronically signed and approved by: Floyd Hare M.D. Radiologis
== END | disposition home or self-care (01) ==
LOC: RADMAMWWP 15:22
PROVIDERS: ATTEND Internal Medicine
DX: Z12.31 Encounter for screening mammogram for malignant neoplasm of breast (principal); R92.323 Mammographic fibroglandular density, bilateral breasts; Z78.0 Asymptomatic menopausal state
CPT/HCPCS: 77067